=== PATIENT | female | born 1950 | race Caucasian/White ===

== ENCOUNTER 2020-02-28 08:19 | Outpatient (CLI) | payer MEDICARE, OTHER, SELFPAY ==
--- NOTE | 2020-02-28 08:35 | PC.NURSE ---
PT TO ROOM 201 AMB WITH SPOUSE. A&OX3. HAS NO COMPLAINTS. SPOUSE HAS LOTS OF QUESTIONS. BOTH PT AND SPOUSE APPEAR NERVOUS. TREATMENT AND PLAN OF CARE EXPLAINED. PT AND SPOUSE STATE THEY FEEL REASSURED. CHEMOTHERAPY CONSENT SIGNED. PT STATES SHE DOES NOT HAVE A PORT YET. LAB IN TO DRAW CBC AND CMP. ORIENTED TO ROOM. CALL GRAF IN REACH. REMINDED TO CALL WITH NEEDS.
[2020-02-28 08:50] LABS: Basophils Absolute Auto 0.02 K/mm3 (0.00-0.10); Basophils Percent Auto 0.5 % (0.0-1.0); Eosinophils Absolute Auto 0.09 K/mm3 (0.02-0.50); Eosinophils Percent Auto 2.2 % (1.0-6.0); Hematocrit 39.9 % (35.0-42.0); Hemoglobin 13.1 g/dL (11.7-13.8); Immature Granulocyte Absolute 0.01 K/mm3 (0.00-0.00); Immature Granulocyte Percent A 0.2 % (0.0-0.0); Lymphocytes Absolute Auto 1.05 K/mm3 (1.10-4.50); Lymphocytes Percent Auto 25.4 % (18.0-42.0); Mean Corpuscular HGB Conc 32.8 g/dL (32.0-36.0); Mean Corpuscular Hemoglobin 31.9 pg (27.0-31.0); Mean Corpuscular Volume 97.1 fL (78.0-102.0); Mean Platelet Volume 11.5 fl (9.2-11.8); Monocytes Absolute Auto 0.43 K/mm3 (0.10-0.90); Monocytes Percent Auto 10.4 % (2.0-11.0); Neutrophils Absolute Auto 2.5 K/mm3 (1.7-7.2); Neutrophils Percent Auto 61.3 % (50.0-70.0); Platelet Count Result 213 K/mm3 (150-420); Red Blood Count 4.11 M/mm3 (4.20-5.40); Red Cell Distribution Width 12.7 % (11.6-14.4); White Blood Count 4.1 K/mm3 (4.8-10.8)
[2020-02-28 09:00] LABS: Alanine Aminotransferase 22 U/L (14-59); Albumin Level 3.1 g/dL (3.4-5.0); Alkaline Phosphatase 43 U/L (46-116); Anion Gap 10.1 mmol/L (7-16); Aspartate Amino Transferase 20 U/L (15-37); Bilirubin,Total 0.8 mg/dL (0.00-1.00); Blood Urea Nitrogen 13 mg/dL (7-18); Calcium 8.8 mg/dL (8.5-10.1); Carbon Dioxide 30 mmol/L (21-32); Chloride 100 mmol/L (98-108); Estimated Glomerular Filt Rate > 60; Glucose 104 mg/dL (70-99); Osmolality Calculated 284 mOsm/kg (285-295); Potassium 3.1 mmol/L (3.5-5.1); Sodium 137 mmol/L (136-145)
[2020-02-28] MEDS: FAMOTIDINE 20 MG/ISO 50 ML 20 MG/50 ML BAG 100 MG IVPB (09:45)
[2020-02-28] MEDS: ACETAMINOPHEN 325 MG TABLET 650 MG PO (09:45)
[2020-02-28] MEDS: SODIUM CHLORIDE 0.9% IV 250 ML 10 ML IVPB (09:45)
[2020-02-28 09:51] VITALS: BP 121/66; PULSE 76; RESP 20; TEMP 37.1; O2SAT 96
--- NOTE | 2020-02-28 11:23 | PC.NURSE ---
RITUXIN INCREASED TO 100ML/HR PER PROTOCOL. PATIENT IS TOLERATING WELL. HAS NO COMPLAINTS. VSS. REMINDED TO CALL WITH NEEDS.
[2020-02-28 11:24] VITALS: BP 133/67; PULSE 71; RESP 20; TEMP 36.9; O2SAT 99
--- NOTE | 2020-02-28 12:19 | PC.NURSE ---
PT ATE LUNCH WITHOUT COMPLAINT. RITUXIN CONTINUES TO INFUSE WITHOUT DIFFICULTY. CURRENT RATE IS 200ML/HOUR. PT TOLERATING WELL. SPOUSE AT BEDSIDE. CALL GRAF IN REACH. REMINDED TO CALL WITH NEEDS.
[2020-02-28 12:54] VITALS: BP 109/55; PULSE 73; RESP 20; TEMP 36.6; O2SAT 97
[2020-02-28 13:51] VITALS: BP 104/52; PULSE 75; RESP 20; TEMP 37.4; O2SAT 96
--- NOTE | 2020-02-28 13:52 | PC.NURSE ---
PT RESTING PER BED WITHOUT COMPLAINTS. RITUXIN CONTINUES TO INFUSE. SPOUSE AT BEDSIDE. REMINDED TO CALL WITH NEEDS.
--- NOTE | 2020-02-28 15:20 | PC.NURSE ---
ALL MEDICATIONS INFUSED ORDERED. PT TOLERATED WELL. PT AND SPOUSE HAVE NO QUESTIONS, COMPLAINTS OR CONCERNS. DISCHARGED TO HOME AMB.
== END 2020-02-28 08:20 | disposition home or self-care (01) ==
PROVIDERS: PCP Family Medicine; Visit Provider Internal Medicine Hematology & Oncology
DX: Z51.11 Encounter for antineoplastic chemotherapy (principal); C83.00 Small cell B-cell lymphoma, unspecified site
CPT/HCPCS: 36415; 80053; 85025; 96365; 96367; 96368; 96374; 96375; 96413; 96415; A9270; J1100; J1200; J7030; J7050; J9312

== ENCOUNTER 2020-03-06 08:24 | Outpatient (CLI) | payer MEDICARE, OTHER, SELFPAY ==
[2020-03-06 08:38] LABS: Hematocrit 41.6 % (35.0-42.0); Hemoglobin 13.5 g/dL (11.7-13.8); Mean Corpuscular HGB Conc 32.5 g/dL (32.0-36.0); Mean Corpuscular Hemoglobin 32.3 pg (27.0-31.0); Mean Corpuscular Volume 99.5 fL (78.0-102.0); Mean Platelet Volume 12.2 fl (9.2-11.8); Platelet Count Result 141 K/mm3 (150-420); Red Blood Count 4.18 M/mm3 (4.20-5.40); Red Cell Distribution Width 12.7 % (11.6-14.4); White Blood Count 6.1 K/mm3 (4.8-10.8)
[2020-03-06 08:52] LABS: Alanine Aminotransferase 16 U/L (14-59); Albumin Level 3.2 g/dL (3.4-5.0); Alkaline Phosphatase 40 U/L (46-116); Anion Gap 10.5 mmol/L (7-16); Aspartate Amino Transferase 15 U/L (15-37); Bilirubin,Total 1.2 mg/dL (0.00-1.00); Blood Urea Nitrogen 12 mg/dL (7-18); Calcium 8.8 mg/dL (8.5-10.1); Carbon Dioxide 29 mmol/L (21-32); Chloride 103 mmol/L (98-108); Estimated Glomerular Filt Rate > 60; Glucose 91 mg/dL (70-99); Osmolality Calculated 285 mOsm/kg (285-295); Potassium 4.5 mmol/L (3.5-5.1); Sodium 138 mmol/L (136-145); Total Protein 9.6 g/dL (6.4-8.2)
[2020-03-06 09:22] LABS: Band Neutrophils Percent 1 % (0-6); Basophils Percent Manual 0 % (0-1); Eosinophils Absolute Manual 0.12 K/mm3 (0.02-0.5); Eosinophils Percent Manual 2 % (1-6); Lymphocytes Absolute Manual 1.52 K/mm3 (1.1-4.5); Lymphocytes Percent Manual 25 % (18-44); Metamyelocytes Percent 1 %; Monocytes Absolute Manual 0.48 K/mm3 (0.1-0.90); Monocytes Percent Manual 8 % (3-9); Neutrophils Percent Manual 63 % (46-73); Platelet Estimate Adequate (Adequate); Total Cells Counted 100
[2020-03-06] MEDS: SODIUM CHLORIDE 0.9% IV 250 ML 10 ML IVPB (09:31)
[2020-03-06] MEDS: ACETAMINOPHEN 325 MG TABLET 650 MG PO (09:34)
[2020-03-06] MEDS: FAMOTIDINE 20 MG/ISO 50 ML 20 MG/50 ML BAG 100 MG IVPB (09:42)
[2020-03-06 10:08] VITALS: BP 145/63; PULSE 76; RESP 16; TEMP 36.6; O2SAT 99
[2020-03-06 11:04] VITALS: BP 115/56; PULSE 72; RESP 14; TEMP 36.6; O2SAT 98
--- NOTE | 2020-03-06 11:05 | PC.NURSE ---
0900 PATIENT HERE FOR CHEMO RITUXIMAB INFUSION. ALSO TAKE PO IBRUTINIB AT HOME DAILY. LABS REVIEWED WITH PATIENT AND CHEMO DRUGS SIDE EFFECTS ETC WITH PATIENT. ALSO REVIEWED HOME MEDS WITH PATIENT. ALL CONCERNS ANSWERED THAT PATIENT AND HAD. PATIENT VERY NERVOUS TODAY. THIS IS #2 IV CHEMO. PATIENT DID TAKE AN ATIVAN PO PRIOR TO TREATMENT. 1030 RITUXIMAB STARTED NOW THAT ALL PREMEDS IN. PATIENT SOMEWHAT LESS ANXIOUS. REPORTS SHE GETS LIKE THIS AT TIMES.
[2020-03-06 11:32] VITALS: BP 109/60; PULSE 76; RESP 14; O2SAT 98
--- NOTE | 2020-03-06 11:33 | PC.NURSE ---
1130 REPORTS LESS ANXIOUS. RITUXIMAB INFUSING WITHOUT DIFFICULTY. AT BED SIDE. NO CONCERNS VOICED.
[2020-03-06 12:02] VITALS: BP 105/59; PULSE 74; RESP 14; O2SAT 98
[2020-03-06 13:00] VITALS: BP 105/59; PULSE 72; RESP 14; O2SAT 98
[2020-03-06 15:00] VITALS: BP 109/59; PULSE 74; RESP 14; TEMP 37.2; O2SAT 98
--- NOTE | 2020-03-06 15:40 | PC.NURSE ---
1530 PATIENT TOLERATED CHEMO WELL. LESS ANXIOUS IN THE BEGINNING THIS A.M. NO CONCERNS VOICED. CALLED TO DR. STOVER OFFICE TO SEE IF OKAY TO CHANGE NEXT FRIDAY TO FRIDAY R/T APPOINTMENTS WITH OTHER DOCTORS ON FRIDAY. SO NEXT CHEMO WILL BE Friday03/16/20 @ 0830. SAFE EXIT OF HOSPITAL.
== END 2020-03-06 08:25 | disposition home or self-care (01) ==
PROVIDERS: PCP Family Medicine; Visit Provider Internal Medicine Hematology & Oncology
DX: Z51.11 Encounter for antineoplastic chemotherapy (principal); C83.00 Small cell B-cell lymphoma, unspecified site
CPT/HCPCS: 36415; 80053; 85025; 96365; 96367; 96374; 96375; 96413; 96415; A9270; J1100; J1200; J7030; J7050; J9312

== ENCOUNTER 2020-03-14 08:19 | Outpatient (CLI) | payer MEDICARE, OTHER, SELFPAY ==
[2020-03-14 08:30] LABS: Hemoglobin 13.7 g/dL (11.7-13.8); Mean Corpuscular HGB Conc 32.6 g/dL (32.0-36.0); Mean Corpuscular Hemoglobin 32.5 pg (27.0-31.0); Mean Corpuscular Volume 99.8 fL (78.0-102.0); Mean Platelet Volume 12.5 fl (9.2-11.8); Platelet Count Result 152 K/mm3 (150-420); Red Blood Count 4.21 M/mm3 (4.20-5.40); Red Cell Distribution Width 12.9 % (11.6-14.4); White Blood Count 5.8 K/mm3 (4.8-10.8)
[2020-03-14 08:45] LABS: Alanine Aminotransferase 19 U/L (14-59); Albumin Level 3.2 g/dL (3.4-5.0); Alkaline Phosphatase 35 U/L (46-116); Anion Gap 9.4 mmol/L (7-16); Aspartate Amino Transferase 18 U/L (15-37); Bilirubin,Total 1.6 mg/dL (0.00-1.00); Blood Urea Nitrogen 19 mg/dL (7-18); Calcium 9.1 mg/dL (8.5-10.1); Carbon Dioxide 29 mmol/L (21-32); Chloride 102 mmol/L (98-108); Estimated Glomerular Filt Rate > 60; Glucose 88 mg/dL (70-99); Osmolality Calculated 283 mOsm/kg (285-295); Potassium 4.4 mmol/L (3.5-5.1); Sodium 136 mmol/L (136-145); Total Protein 9.2 g/dL (6.4-8.2)
[2020-03-14 08:51] VITALS: BP 127/70; PULSE 72; RESP 16; TEMP 36.6; O2SAT 96
[2020-03-14 08:53] LABS: Band Neutrophils Percent 0 % (0-6); Basophils Absolute Manual 0.05 K/mm3 (0-0.1); Basophils Percent Manual 1 % (0-1); Eosinophils Absolute Manual 0.17 K/mm3 (0.02-0.5); Eosinophils Percent Manual 3 % (1-6); Lymphocytes Absolute Manual 1.16 K/mm3 (1.1-4.5); Lymphocytes Percent Manual 20 % (18-44); Monocytes Absolute Manual 0.29 K/mm3 (0.1-0.90); Monocytes Percent Manual 5 % (3-9); Neutrophils Absolute Manual 4.11 K/mm3 (1.7-7.2); Neutrophils Percent Manual 71 % (46-73); Platelet Estimate Adequate (Adequate); Total Cells Counted 100
[2020-03-14] MEDS: SODIUM CHLORIDE 0.9% IV 250 ML 10 ML IVPB (09:19)
[2020-03-14] MEDS: ACETAMINOPHEN 325 MG TABLET 650 MG PO (09:19)
[2020-03-14] MEDS: diphenhydrAMINE HCl INJ 50 MG/ML VIAL 25 MG IV PUSH (09:19)
[2020-03-14] MEDS: FAMOTIDINE 20 MG/ISO 50 ML 20 MG/50 ML BAG 100 MG IVPB (09:20)
[2020-03-14 11:00] VITALS: BP 113/69; PULSE 68; RESP 12; TEMP 36.6; O2SAT 96
[2020-03-14 11:30] VITALS: BP 109/64; PULSE 68; RESP 14; O2SAT 96
[2020-03-14 12:00] VITALS: BP 106/60; PULSE 72; RESP 16; O2SAT 97
[2020-03-14 14:45] VITALS: BP 109/62; PULSE 64; RESP 14; TEMP 36.8; O2SAT 96
--- NOTE | 2020-03-14 15:11 | PC.NURSE ---
0866 Patient here for treatment 3 of cycle 1 rituximab + Ibrutinib. No concerns voiced. Went over current medications and any side effects could be happening with chemo. Patient happy she tolerating it well so far. Labs reviewed. Ok to proceed with chemo. Chemo therapy regimen administered tolerated it well. 1500 Safe exit of hospital. Will return next Friday for treatment 4 of cycle 1.
== END 2020-03-14 08:20 | disposition home or self-care (01) ==
PROVIDERS: PCP Family Medicine; Visit Provider Internal Medicine Hematology & Oncology
DX: Z51.11 Encounter for antineoplastic chemotherapy (principal); C83.00 Small cell B-cell lymphoma, unspecified site
CPT/HCPCS: 36415; 80053; 85025; 96367; 96375; 96413; 96415; A9270; J1100; J1200; J7030; J7050; J9312

== ENCOUNTER 2020-03-20 07:56 | Outpatient (CLI) | payer MEDICARE, OTHER, SELFPAY ==
[2020-03-20 08:15] LABS: Hematocrit 43.5 % (35.0-42.0); Hemoglobin 13.6 g/dL (11.7-13.8); Mean Corpuscular HGB Conc 31.3 g/dL (32.0-36.0); Mean Corpuscular Hemoglobin 31.5 pg (27.0-31.0); Mean Corpuscular Volume 100.7 fL (78.0-102.0); Mean Platelet Volume 13.1 fl (9.2-11.8); Platelet Count Result 151 K/mm3 (150-420); Red Blood Count 4.32 M/mm3 (4.20-5.40); Red Cell Distribution Width 12.4 % (11.6-14.4); White Blood Count 6.4 K/mm3 (4.8-10.8)
[2020-03-20 08:26] LABS: Blood Urea Nitrogen 13 mg/dL (7-18); Calcium 8.6 mg/dL (8.5-10.1); Estimated Glomerular Filt Rate > 60; Glucose 91 mg/dL (70-99)
[2020-03-20 08:35] LABS: Band Neutrophils Percent 0 % (0-6); Eosinophils Absolute Manual 0.06 K/mm3 (0.02-0.5); Eosinophils Percent Manual 1 % (1-6); Lymphocytes Absolute Manual 1.08 K/mm3 (1.1-4.5); Lymphocytes Percent Manual 17 % (18-44); Monocytes Absolute Manual 0.57 K/mm3 (0.1-0.90); Monocytes Percent Manual 9 % (3-9); Neutrophils Absolute Manual 4.67 K/mm3 (1.7-7.2); Neutrophils Percent Manual 73 % (46-73); Platelet Estimate Adequate (Adequate); Total Cells Counted 100
[2020-03-20 09:10] VITALS: BP 127/83; PULSE 68; RESP 14; TEMP 36.6; O2SAT 96
[2020-03-20] MEDS: ACETAMINOPHEN 325 MG TABLET 650 MG PO (09:28)
[2020-03-20] MEDS: FAMOTIDINE 20 MG/ISO 50 ML 20 MG/50 ML BAG 100 MG IVPB (09:29)
[2020-03-20] MEDS: diphenhydrAMINE HCl INJ 50 MG/ML VIAL 25 MG IV PUSH (09:29)
[2020-03-20] MEDS: SODIUM CHLORIDE 0.9% IV 250 ML 10 ML IVPB (09:29)
[2020-03-20 10:42] LABS: Chloride 105 mmol/L (98-107); Osmolality Calculated 284 mOsm/kg (285-295); Potassium 4.1 mmol/L (3.4-5.0); Sodium 137 mmol/L (137-145)
[2020-03-20 11:12] VITALS: BP 127/61; PULSE 68; RESP 12; O2SAT 98
[2020-03-20 11:12] LABS: Alanine Aminotransferase 18 U/L (14-59); Albumin Level 3.1 g/dL (3.4-5.0); Alkaline Phosphatase 40 U/L (46-116); Anion Gap 9.1 mmol/L (7-16); Aspartate Amino Transferase 15 U/L (15-37); Bilirubin,Total 1.1 mg/dL (0.00-1.00); Carbon Dioxide 27 mmol/L (21-32); Total Protein 8.6 g/dL (6.4-8.2)
[2020-03-20 11:36] VITALS: BP 114/70; PULSE 72; RESP 18; O2SAT 98
[2020-03-20 12:12] VITALS: BP 129/70; PULSE 72; RESP 14; O2SAT 97
[2020-03-20 14:08] VITALS: BP 120/70; PULSE 72; RESP 14; O2SAT 98
[2020-03-20 15:08] VITALS: BP 130/70; PULSE 68; RESP 12; TEMP 36.6; O2SAT 97
--- NOTE | 2020-03-20 15:13 | PC.NURSE ---
PATIENT HERE FOR 4 AND FINAL CHEMO OF CYCLE 1 RITUXIN. NO CONCERNS VOICED. LABS REVIEWED WITH PATIENT. CHEMO ADMINISTERED. TOLERATED WELL. SAFE EXIT OF HOSPITAL WITH . PATIENT HAS APPOINTMENT WITH DR. STOVER THIS FridayMARCH 24 AT 1300.
== END 2020-03-20 07:57 | disposition home or self-care (01) ==
LOC: CHSTREATRM 07:58
PROVIDERS: PCP Family Medicine; Visit Provider Internal Medicine Hematology & Oncology
DX: Z51.11 Encounter for antineoplastic chemotherapy (principal); C83.00 Small cell B-cell lymphoma, unspecified site
CPT/HCPCS: 36415; 80053; 85025; 96367; 96375; 96413; 96415; A9270; J1100; J1200; J7030; J7050; J9312

== ENCOUNTER 2020-05-29 07:48 | Outpatient (CLI) | payer MEDICARE, OTHER, SELFPAY ==
[2020-05-29 07:59] LABS: Hematocrit 41.4 % (35.0-42.0); Hemoglobin 12.9 g/dL (11.7-13.8); Mean Corpuscular HGB Conc 31.2 g/dL (32.0-36.0); Mean Corpuscular Hemoglobin 29.5 pg (27.0-31.0); Mean Corpuscular Volume 94.5 fL (78.0-102.0); Mean Platelet Volume 11.9 fl (9.2-11.8); Platelet Count Result 173 K/mm3 (150-420); Red Blood Count 4.38 M/mm3 (4.20-5.40); Red Cell Distribution Width 12.8 % (11.6-14.4); White Blood Count 9.9 K/mm3 (4.8-10.8)
[2020-05-29 08:14] LABS: Alanine Aminotransferase 20 U/L (14-59); Albumin Level 2.9 g/dL (3.4-5.0); Alkaline Phosphatase 58 U/L (46-116); Anion Gap 7 mmol/L (8-16); Aspartate Amino Transferase 16 U/L (15-37); Bilirubin,Total 0.8 mg/dL (0.00-1.00); Blood Urea Nitrogen 18 mg/dL (7-18); Calcium 8.4 mg/dL (8.5-10.1); Carbon Dioxide 28 mmol/L (21-32); Chloride 108 mmol/L (98-108); Estimated Glomerular Filt Rate > 60; Glucose 92 mg/dL (70-99); Osmolality Calculated 297 mOsm/kg (285-295); Sodium 143 mmol/L (136-145); Total Protein 7.6 g/dL (6.4-8.2)
[2020-05-29 08:19] VITALS: BP 155/78; PULSE 72; RESP 16; TEMP 36.6; O2SAT 97
[2020-05-29 08:34] LABS: Total Cells Counted 100
[2020-05-29 08:35] LABS: Band Neutrophils Percent 0 % (0-6); Basophils Percent Manual 0 % (0-1); Eosinophils Absolute Manual 0.09 K/mm3 (0.02-0.5); Eosinophils Percent Manual 1 % (1-6); Lymphocytes Absolute Manual 2.17 K/mm3 (1.1-4.5); Lymphocytes Percent Manual 22 % (18-44); Metamyelocytes Percent 0 %; Monocytes Absolute Manual 0.49 K/mm3 (0.1-0.90); Monocytes Percent Manual 5 % (3-9); Neutrophils Absolute Manual 7.12 K/mm3 (1.7-7.2); Neutrophils Percent Manual 72 % (46-73); Platelet Estimate Adequate (Adequate)
[2020-05-29] MEDS: diphenhydrAMINE HCl INJ 50 MG/ML VIAL 25 MG IV PUSH (08:53)
[2020-05-29] MEDS: ACETAMINOPHEN 325 MG TABLET 650 MG PO (08:53)
[2020-05-29] MEDS: FAMOTIDINE 20 MG/ISO 50 ML 20 MG/50 ML BAG 100 MG IVPB (08:53)
[2020-05-29] MEDS: SODIUM CHLORIDE 0.9% IV 250 ML 10 ML IVPB (08:53)
[2020-05-29 10:39] VITALS: BP 114/67; PULSE 68; RESP 14; O2SAT 97
[2020-05-29 11:09] VITALS: BP 123/69; PULSE 68; RESP 14; O2SAT 97
[2020-05-29 11:30] VITALS: BP 123/65; PULSE 68; RESP 14; O2SAT 98
[2020-05-29 14:32] VITALS: BP 113/69; PULSE 68; RESP 14; TEMP 36.6; O2SAT 97
--- NOTE | 2020-05-29 14:37 | PC.NURSE ---
0800 Patient here for day 1 of Rituximab chemo treatment. Patient had this back in April. Refresher on education on chemo given. with her. Labs reviewed. Chemo administered. Tolerated well. Will return for day 8 next Friday. Safe exit of hospital.
== END 2020-05-29 07:49 | disposition home or self-care (01) ==
PROVIDERS: PCP Family Medicine; Visit Provider Internal Medicine Hematology & Oncology
DX: Z51.11 Encounter for antineoplastic chemotherapy (principal); C83.00 Small cell B-cell lymphoma, unspecified site
CPT/HCPCS: 36415; 80053; 85025; 96367; 96375; 96413; 96415; A9270; J1100; J1200; J7030; J7050; J9312

== ENCOUNTER 2020-06-05 07:54 | Outpatient (CLI) | payer MEDICARE, OTHER, SELFPAY ==
[2020-06-05 08:04] LABS: Basophils Absolute Auto 0.02 K/mm3 (0.00-0.10); Basophils Percent Auto 0.2 % (0.0-1.0); Eosinophils Absolute Auto 0.16 K/mm3 (0.02-0.50); Eosinophils Percent Auto 1.7 % (1.0-6.0); Hematocrit 39.9 % (35.0-42.0); Hemoglobin 12.5 g/dL (11.7-13.8); Immature Granulocyte Absolute 0.08 K/mm3 (0.00-0.00); Immature Granulocyte Percent A 0.9 % (0.0-0.0); Lymphocytes Absolute Auto 1.66 K/mm3 (1.10-4.50); Lymphocytes Percent Auto 17.7 % (18.0-42.0); Mean Corpuscular HGB Conc 31.3 g/dL (32.0-36.0); Mean Corpuscular Hemoglobin 29.6 pg (27.0-31.0); Mean Corpuscular Volume 94.3 fL (78.0-102.0); Mean Platelet Volume 11.8 fl (9.2-11.8); Monocytes Absolute Auto 0.73 K/mm3 (0.10-0.90); Monocytes Percent Auto 7.8 % (2.0-11.0); Neutrophils Absolute Auto 6.7 K/mm3 (1.7-7.2); Neutrophils Percent Auto 71.7 % (50.0-70.0); Platelet Count Result 168 K/mm3 (150-420); Red Blood Count 4.23 M/mm3 (4.20-5.40); Red Cell Distribution Width 13.2 % (11.6-14.4); White Blood Count 9.4 K/mm3 (4.8-10.8)
[2020-06-05 08:22] VITALS: BP 143/80; PULSE 78; RESP 14; TEMP 36; O2SAT 97
[2020-06-05 08:44] LABS: Alanine Aminotransferase 16 U/L (14-59); Albumin Level 2.7 g/dL (3.4-5.0); Alkaline Phosphatase 52 U/L (46-116); Anion Gap 6 mmol/L (8-16); Aspartate Amino Transferase 31 U/L (15-37); Bilirubin,Total 0.7 mg/dL (0.00-1.00); Blood Urea Nitrogen 16 mg/dL (7-18); Calcium 8.4 mg/dL (8.5-10.1); Carbon Dioxide 32 mmol/L (21-32); Chloride 106 mmol/L (98-108); Estimated Glomerular Filt Rate > 60; Glucose 89 mg/dL (70-99); Osmolality Calculated 298 mOsm/kg (285-295); Potassium 4.3 mmol/L (3.5-5.1); Sodium 144 mmol/L (136-145); Total Protein 7.5 g/dL (6.4-8.2)
[2020-06-05] MEDS: diphenhydrAMINE HCl INJ 50 MG/ML VIAL 25 MG IV PUSH (09:03)
[2020-06-05] MEDS: ACETAMINOPHEN 325 MG TABLET 650 MG PO (09:03)
[2020-06-05] MEDS: SODIUM CHLORIDE 0.9% IV 250 ML 10 ML IVPB (09:03)
[2020-06-05] MEDS: FAMOTIDINE 20 MG/ISO 50 ML 20 MG/50 ML BAG 100 MG IVPB (09:03)
[2020-06-05 10:26] VITALS: BP 116/69; PULSE 68; RESP 14; TEMP 36.6; O2SAT 97
[2020-06-05 11:30] VITALS: BP 128/70; PULSE 68; RESP 16; O2SAT 97
[2020-06-05 14:23] VITALS: BP 123/70; PULSE 72; RESP 14; TEMP 36.6; O2SAT 97
--- NOTE | 2020-06-05 14:28 | PC.NURSE ---
Patient here for day 8 of cycle 1 Rituximab chemo. No concerns voiced. with her. Labs reviewed and ok'd. Rituximab regimen administered see OCT. Tolerated very well. Will return next Friday for day 15. Safe exit of hospital.
== END 2020-06-05 07:55 | disposition home or self-care (01) ==
LOC: CHSTREATRM 07:57
PROVIDERS: PCP Family Medicine; Visit Provider Internal Medicine Hematology & Oncology
DX: Z51.11 Encounter for antineoplastic chemotherapy (principal); C83.00 Small cell B-cell lymphoma, unspecified site
CPT/HCPCS: 36415; 80053; 85025; 96367; 96375; 96413; 96415; A9270; J1100; J1200; J7030; J7050; J9312

== ENCOUNTER 2020-06-12 07:34 | Outpatient (CLI) | payer MEDICARE, OTHER, SELFPAY ==
[2020-06-12 07:46] LABS: Hematocrit 39.8 % (35.0-42.0); Hemoglobin 12.4 g/dL (11.7-13.8); Mean Corpuscular HGB Conc 31.2 g/dL (32.0-36.0); Mean Corpuscular Hemoglobin 29.3 pg (27.0-31.0); Mean Corpuscular Volume 94.1 fL (78.0-102.0); Mean Platelet Volume 12.3 fl (9.2-11.8); Platelet Count Result 181 K/mm3 (150-420); Red Blood Count 4.23 M/mm3 (4.20-5.40); Red Cell Distribution Width 13.2 % (11.6-14.4); White Blood Count 12.8 K/mm3 (4.8-10.8)
[2020-06-12 08:01] LABS: Albumin Level 2.9 g/dL (3.4-5.0); Alkaline Phosphatase 54 U/L (46-116); Anion Gap 10 mmol/L (8-16); Carbon Dioxide 24 mmol/L (21-32); Chloride 107 mmol/L (98-108); Estimated Glomerular Filt Rate > 60; Potassium 4.2 mmol/L (3.5-5.1); Sodium 141 mmol/L (136-145)
[2020-06-12 08:06] LABS: Band Neutrophils Percent 0 % (0-6); Eosinophils Percent Manual 0 % (1-6); Lymphocytes Absolute Manual 1.15 K/mm3 (1.1-4.5); Lymphocytes Percent Manual 9 % (18-44); Monocytes Absolute Manual 0.64 K/mm3 (0.1-0.90); Monocytes Percent Manual 5 % (3-9); Neutrophils Percent Manual 86 % (46-73); Platelet Estimate Adequate (Adequate); Total Cells Counted 100
[2020-06-12 08:07] VITALS: BP 136/64; PULSE 80; RESP 14; TEMP 35.9; O2SAT 97
[2020-06-12 08:16] LABS: Alanine Aminotransferase 17 U/L (14-59); Aspartate Amino Transferase 17 U/L (15-37); Bilirubin,Total 0.7 mg/dL (0.00-1.00); Blood Urea Nitrogen 19 mg/dL (7-18); Calcium 8.3 mg/dL (8.5-10.1); Glucose 105 mg/dL (70-99); Osmolality Calculated 294 mOsm/kg (285-295); Total Protein 7.3 g/dL (6.4-8.2)
[2020-06-12] MEDS: SODIUM CHLORIDE 0.9% IV 250 ML 10 ML IVPB (08:51)
[2020-06-12] MEDS: diphenhydrAMINE HCl INJ 50 MG/ML VIAL 25 MG IV PUSH (08:51)
[2020-06-12] MEDS: ACETAMINOPHEN 325 MG TABLET 650 MG PO (08:51)
[2020-06-12] MEDS: FAMOTIDINE 20 MG/ISO 50 ML 20 MG/50 ML BAG 100 MG IVPB (08:52)
[2020-06-12 10:00] VITALS: BP 120/68; PULSE 77; RESP 14; O2SAT 97
[2020-06-12 10:30] VITALS: BP 116/68; PULSE 74; RESP 14; O2SAT 97
[2020-06-12 12:56] VITALS: BP 120/69; PULSE 74; RESP 14; TEMP 36.3; O2SAT 97
[2020-06-12 14:08] VITALS: BP 114/68; PULSE 74; RESP 14; TEMP 36.3; O2SAT 97
--- NOTE | 2020-06-12 14:12 | PC.NURSE ---
Patient here for day 15 of cycle 1 Rituximab 28 day cycle. No concerns voiced. Reports did well this past week. Labs reviewed and ok'd. Rituximab regime administered. SEE MAR. Tolerated chemo well. Will return for next Tuesday 06/19 at 0800. Safe exit of hospital.
== END 2020-06-12 07:35 | disposition home or self-care (01) ==
LOC: CHSTREATRM 07:36
PROVIDERS: PCP Family Medicine; Visit Provider Internal Medicine Hematology & Oncology
DX: Z51.11 Encounter for antineoplastic chemotherapy (principal); C83.00 Small cell B-cell lymphoma, unspecified site
CPT/HCPCS: 36415; 80053; 85025; 96367; 96375; 96413; 96415; A9270; J1100; J1200; J7030; J7050; J9312

== ENCOUNTER 2020-06-19 07:38 | Outpatient (CLI) | payer MEDICARE, OTHER, SELFPAY ==
[2020-06-19 07:48] LABS: Basophils Absolute Auto 0.04 K/mm3 (0.00-0.10); Basophils Percent Auto 0.4 % (0.0-1.0); Eosinophils Absolute Auto 0.08 K/mm3 (0.02-0.50); Eosinophils Percent Auto 0.9 % (1.0-6.0); Hematocrit 41.5 % (35.0-42.0); Hemoglobin 12.8 g/dL (11.7-13.8); Immature Granulocyte Absolute 0.14 K/mm3 (0.00-0.00); Immature Granulocyte Percent A 1.5 % (0.0-0.0); Lymphocytes Percent Auto 12.9 % (18.0-42.0); Mean Corpuscular HGB Conc 30.8 g/dL (32.0-36.0); Mean Corpuscular Hemoglobin 29.2 pg (27.0-31.0); Mean Corpuscular Volume 94.5 fL (78.0-102.0); Mean Platelet Volume 11.9 fl (9.2-11.8); Monocytes Absolute Auto 0.71 K/mm3 (0.10-0.90); Monocytes Percent Auto 7.6 % (2.0-11.0); Neutrophils Absolute Auto 7.1 K/mm3 (1.7-7.2); Neutrophils Percent Auto 76.7 % (50.0-70.0); Platelet Count Result 212 K/mm3 (150-420); Red Blood Count 4.39 M/mm3 (4.20-5.40); Red Cell Distribution Width 13.7 % (11.6-14.4); White Blood Count 9.3 K/mm3 (4.8-10.8)
[2020-06-19 08:04] LABS: Alanine Aminotransferase 16 U/L (14-59); Albumin Level 3.1 g/dL (3.4-5.0); Alkaline Phosphatase 55 U/L (46-116); Anion Gap 5 mmol/L (8-16); Aspartate Amino Transferase 19 U/L (15-37); Bilirubin,Total 0.9 mg/dL (0.00-1.00); Blood Urea Nitrogen 18 mg/dL (7-18); Calcium 8.5 mg/dL (8.5-10.1); Carbon Dioxide 28 mmol/L (21-32); Chloride 107 mmol/L (98-108); Estimated Glomerular Filt Rate > 60; Glucose 87 mg/dL (70-99); Osmolality Calculated 290 mOsm/kg (285-295); Potassium 4.2 mmol/L (3.5-5.1); Sodium 140 mmol/L (136-145); Total Protein 7.3 g/dL (6.4-8.2)
[2020-06-19 08:13] VITALS: BP 114/59; PULSE 84; RESP 14; TEMP 36.3; O2SAT 97
[2020-06-19] MEDS: SODIUM CHLORIDE 0.9% IV 250 ML 10 ML IVPB (08:28)
[2020-06-19] MEDS: FAMOTIDINE 20 MG/ISO 50 ML 20 MG/50 ML BAG 100 MG IVPB (08:29)
[2020-06-19] MEDS: diphenhydrAMINE HCl INJ 50 MG/ML VIAL 25 MG IV PUSH (08:29)
[2020-06-19] MEDS: ACETAMINOPHEN 325 MG TABLET 650 MG PO (08:30)
[2020-06-19 10:00] VITALS: BP 114/69; PULSE 74; RESP 14; O2SAT 98
[2020-06-19 10:30] VITALS: BP 121/68; PULSE 78; RESP 16; O2SAT 98
[2020-06-19 11:00] VITALS: BP 108/64; PULSE 78; RESP 14; O2SAT 98
[2020-06-19 14:14] VITALS: BP 110/64; PULSE 74; RESP 14; TEMP 36.4; O2SAT 98
--- NOTE | 2020-06-19 14:19 | PC.NURSE ---
Patient here for day 22 of Rituxan IV chemo regimen. NO concerns voiced. Labs drawn and reviewed and ok'd. Rituxan chemo regimen administered. See OCT. Tolerated it well. Will see Dr. Vides in clinic on Friday and go from there. Safe exit of hospital.
== END 2020-06-19 07:39 | disposition home or self-care (01) ==
LOC: CHSTREATRM 07:40
PROVIDERS: PCP Family Medicine; Visit Provider Internal Medicine Hematology & Oncology
DX: Z51.11 Encounter for antineoplastic chemotherapy (principal); C83.00 Small cell B-cell lymphoma, unspecified site
CPT/HCPCS: 36415; 80053; 85025; 96367; 96375; 96413; 96415; A9270; J1100; J1200; J7030; J7050; J9312

== ENCOUNTER 2021-02-06 07:01 | Outpatient (CLI) | payer MEDICARE, OTHER, SELFPAY ==
[2021-02-06 07:29] VITALS: BMI 30.7
[2021-02-06 07:29] LABS: Basophils Absolute Auto 0.02 K/mm3 (0.00-0.10); Basophils Percent Auto 0.4 % (0.0-1.0); Eosinophils Absolute Auto 0.19 K/mm3 (0.02-0.50); Eosinophils Percent Auto 3.4 % (1.0-6.0); Hematocrit 40.4 % (35.0-42.0); Hemoglobin 12.8 g/dL (11.7-13.8); Immature Granulocyte Absolute 0.02 K/mm3 (0.00-0.00); Immature Granulocyte Percent A 0.4 % (0.0-0.0); Lymphocytes Absolute Auto 1.53 K/mm3 (1.10-4.50); Lymphocytes Percent Auto 27.7 % (18.0-42.0); Mean Corpuscular HGB Conc 31.7 g/dL (32.0-36.0); Mean Corpuscular Hemoglobin 29.1 pg (27.0-31.0); Mean Corpuscular Volume 91.8 fL (78.0-102.0); Mean Platelet Volume 10.9 fl (9.2-11.8); Monocytes Absolute Auto 0.59 K/mm3 (0.10-0.90); Monocytes Percent Auto 10.7 % (2.0-11.0); Neutrophils Absolute Auto 3.2 K/mm3 (1.7-7.2); Neutrophils Percent Auto 57.4 % (50.0-70.0); Platelet Count Result 242 K/mm3 (150-420); Red Cell Distribution Width 13.2 % (11.6-14.4); White Blood Count 5.5 K/mm3 (4.8-10.8)
[2021-02-06 07:36] VITALS: BP 127/72; PULSE 72; RESP 14; TEMP 36.8; O2SAT 97
[2021-02-06] MEDS: FAMOTIDINE 20 MG/ISO 50 ML 20 MG/50 ML BAG 100 MG IVPB (07:50)
[2021-02-06 07:54] LABS: Alanine Aminotransferase 23 U/L (14-59); Albumin Level 3.3 g/dL (3.4-5.0); Alkaline Phosphatase 45 U/L (46-116); Anion Gap 8 mmol/L (8-16); Aspartate Amino Transferase 19 U/L (15-37); Bilirubin,Total 0.9 mg/dL (0.00-1.00); Blood Urea Nitrogen 16 mg/dL (7-18); Calcium 8.9 mg/dL (8.5-10.1); Carbon Dioxide 30 mmol/L (21-32); Chloride 104 mmol/L (98-108); Estimated CRCL calculation 51 ml/min; Estimated Glomerular Filt Rate > 60; Glucose 87 mg/dL (70-99); Osmolality Calculated 294 mOsm/kg (285-295); Potassium 3.9 mmol/L (3.5-5.1); Sodium 142 mmol/L (136-145); Total Protein 7.3 g/dL (6.4-8.2)
[2021-02-06] MEDS: diphenhydrAMINE HCl INJ 50 MG/ML VIAL 25 MG IV PUSH (07:58)
[2021-02-06] MEDS: ACETAMINOPHEN 325 MG TABLET 650 MG PO (07:58)
[2021-02-06 09:10] VITALS: BP 132/74; PULSE 68; RESP 14; O2SAT 97
[2021-02-06 09:41] VITALS: BP 130/62; PULSE 72; RESP 14; O2SAT 98
[2021-02-06 10:13] VITALS: BP 125/70; PULSE 72; RESP 14; TEMP 36.9; O2SAT 98
[2021-02-06 12:23] VITALS: BP 140/68; PULSE 72; RESP 14; O2SAT 98
--- NOTE | 2021-02-06 12:24 | PC.NURSE ---
Patient here for Rituxan IV chemo #1 of 6. Patient was here last year at this time for Rituxan. Went over education on chemo etc. No concerns voiced. Labs drawn today reviewed and ok'd. IV chemo regime administered. Tolerated well. Safe exit of hospital. Will return February 13, 2021 @ 0800 for #2.
[2021-02-08 19:26] LABS: Hepatitis A Antibody IgM Nonreactive; Hepatitis B Core Antibody Nonreactive (Nonreactive); Hepatitis B Surface Antigen Nonreactive (Nonreactive); Hepatitis C Virus Antibody Nonreactive (Nonreactive)
== END 2021-02-06 07:02 | disposition home or self-care (01) ==
LOC: CHSTREATRM 07:06
PROVIDERS: PCP Family Medicine; Visit Provider Internal Medicine Hematology & Oncology
DX: Z51.11 Encounter for antineoplastic chemotherapy (principal); C88.0 Waldenstrom macroglobulinemia; Z01.89 Encounter for other specified special examinations
CPT/HCPCS: 36415; 80053; 80074; 85025; 96367; 96375; 96413; 96415; A9270; J1100; J1200; J7030; J9312

== ENCOUNTER 2021-02-13 07:14 | Outpatient (CLI) | payer MEDICARE, OTHER, SELFPAY ==
[2021-02-13 07:32] LABS: Hemoglobin 13.3 g/dL (11.7-13.8); Mean Corpuscular HGB Conc 32.4 g/dL (32.0-36.0); Mean Corpuscular Hemoglobin 29.6 pg (27.0-31.0); Mean Corpuscular Volume 91.3 fL (78.0-102.0); Mean Platelet Volume 11.9 fl (9.2-11.8); Platelet Count Result 180 K/mm3 (150-420); Red Blood Count 4.49 M/mm3 (4.20-5.40); Red Cell Distribution Width 13.2 % (11.6-14.4); White Blood Count 6.9 K/mm3 (4.8-10.8)
[2021-02-13 07:41] VITALS: BP 122/43; PULSE 76; RESP 14; TEMP 37.1; O2SAT 98
[2021-02-13 07:44] LABS: Alanine Aminotransferase 21 U/L (14-59); Albumin Level 3.4 g/dL (3.4-5.0); Alkaline Phosphatase 46 U/L (46-116); Anion Gap 7 mmol/L (8-16); Aspartate Amino Transferase 15 U/L (15-37); Bilirubin,Total 1.2 mg/dL (0.00-1.00); Blood Urea Nitrogen 16 mg/dL (7-18); Calcium 8.9 mg/dL (8.5-10.1); Carbon Dioxide 29 mmol/L (21-32); Chloride 105 mmol/L (98-108); Estimated Glomerular Filt Rate > 60; Glucose 86 mg/dL (70-99); Osmolality Calculated 292 mOsm/kg (285-295); Sodium 141 mmol/L (136-145); Total Protein 7.4 g/dL (6.4-8.2)
[2021-02-13 07:55] LABS: Band Neutrophils Percent 0 % (0-6); Eosinophils Absolute Manual 0.06 K/mm3 (0.02-0.5); Eosinophils Percent Manual 1 % (1-6); Lymphocytes Percent Manual 29 % (18-44); Monocytes Absolute Manual 0.69 K/mm3 (0.1-0.90); Monocytes Percent Manual 10 % (3-9); Neutrophils Absolute Manual 4.14 K/mm3 (1.7-7.2); Neutrophils Percent Manual 60 % (46-73); Total Cells Counted 100
[2021-02-13 07:56] LABS: Basophils Percent Manual 0 % (0-1); Platelet Estimate Adequate (Adequate)
[2021-02-13] MEDS: FAMOTIDINE 20 MG/ISO 50 ML 20 MG/50 ML BAG 100 MG IVPB (08:00)
[2021-02-13] MEDS: SODIUM CHLORIDE 0.9% IV 250 ML 30 ML IVPB (08:00)
[2021-02-13] MEDS: ACETAMINOPHEN 325 MG TABLET 650 MG PO (08:14)
[2021-02-13] MEDS: diphenhydrAMINE HCl INJ 50 MG/ML VIAL 25 MG IV PUSH (08:29)
[2021-02-13 09:31] VITALS: BP 126/57; PULSE 80; RESP 14; TEMP 36.7; O2SAT 98
[2021-02-13 10:01] VITALS: BP 123/55; PULSE 70; RESP 14; TEMP 36.7; O2SAT 99
[2021-02-13 10:31] VITALS: BP 125/55; PULSE 68; RESP 14; TEMP 36.6; O2SAT 99
[2021-02-13 10:56] VITALS: BP 125/55; PULSE 68; RESP 14; O2SAT 99
[2021-02-13 11:43] VITALS: BMI 30.7
[2021-02-13 12:55] VITALS: BP 118/53; PULSE 68; RESP 14; O2SAT 97
--- NOTE | 2021-02-13 12:56 | PC.NURSE ---
Patient here for #2 of 4 Chemo Rituxan regimen. Labs drawn and reviewed. Ok'd. Teaching of meds reinforced. No concerns voiced. Chemo regime administered. Tolerated well. Safe exit of hospital. Will return next Saturday February 20, 2021 for #3.
== END 2021-02-13 07:15 | disposition home or self-care (01) ==
LOC: CHSTREATRM 07:18
PROVIDERS: PCP Family Medicine; Visit Provider Internal Medicine Hematology & Oncology
DX: Z51.11 Encounter for antineoplastic chemotherapy (principal); C88.0 Waldenstrom macroglobulinemia
CPT/HCPCS: 36415; 80053; 85025; 96367; 96375; 96413; 96415; A9270; J1100; J1200; J7030; J7050; J9312

== ENCOUNTER 2021-02-20 07:18 | Outpatient (CLI) | payer MEDICARE, OTHER, SELFPAY ==
[2021-02-20 07:30] VITALS: BMI 30.6
[2021-02-20 07:33] LABS: Hematocrit 40.8 % (35.0-42.0); Hemoglobin 13.1 g/dL (11.7-13.8); Mean Corpuscular HGB Conc 32.1 g/dL (32.0-36.0); Mean Corpuscular Hemoglobin 29.2 pg (27.0-31.0); Mean Corpuscular Volume 91.1 fL (78.0-102.0); Mean Platelet Volume 12.6 fl (9.2-11.8); Platelet Count Result 154 K/mm3 (150-420); Red Blood Count 4.48 M/mm3 (4.20-5.40); Red Cell Distribution Width 13.1 % (11.6-14.4); White Blood Count 7.8 K/mm3 (4.8-10.8)
[2021-02-20 07:40] VITALS: BP 146/71; PULSE 70; RESP 14; TEMP 36.6; O2SAT 99
[2021-02-20 07:46] LABS: Alanine Aminotransferase 19 U/L (14-59); Albumin Level 3.2 g/dL (3.4-5.0); Alkaline Phosphatase 44 U/L (46-116); Anion Gap 7 mmol/L (8-16); Aspartate Amino Transferase 14 U/L (15-37); Blood Urea Nitrogen 13 mg/dL (7-18); Carbon Dioxide 31 mmol/L (21-32); Chloride 105 mmol/L (98-108); Estimated CRCL calculation 53 ml/min; Estimated Glomerular Filt Rate > 60; Glucose 84 mg/dL (70-99); Osmolality Calculated 295 mOsm/kg (285-295); Sodium 143 mmol/L (136-145); Total Protein 6.9 g/dL (6.4-8.2)
[2021-02-20] MEDS: SODIUM CHLORIDE 0.9% IV 250 ML 10 ML IVPB (07:50)
[2021-02-20] MEDS: FAMOTIDINE 20 MG/ISO 50 ML 20 MG/50 ML BAG 100 MG IVPB (07:50)
[2021-02-20 08:04] LABS: Band Neutrophils Percent 0 % (0-6); Basophils Percent Manual 0 % (0-1); Eosinophils Absolute Manual 0.07 K/mm3 (0.02-0.5); Eosinophils Percent Manual 1 % (1-6); Lymphocytes Absolute Manual 2.02 K/mm3 (1.1-4.5); Lymphocytes Percent Manual 26 % (18-44); Monocytes Absolute Manual 0.62 K/mm3 (0.1-0.90); Monocytes Percent Manual 8 % (3-9); Neutrophils Absolute Manual 5.07 K/mm3 (1.7-7.2); Neutrophils Percent Manual 65 % (46-73); Platelet Estimate Adequate (Adequate); Total Cells Counted 100
[2021-02-20] MEDS: diphenhydrAMINE HCl INJ 50 MG/ML VIAL 25 MG IV PUSH (08:12)
[2021-02-20] MEDS: ACETAMINOPHEN 325 MG TABLET 650 MG BY MOUTH (08:13)
[2021-02-20 09:45] VITALS: BP 130/68; PULSE 68; RESP 14; O2SAT 98
[2021-02-20 10:30] VITALS: BP 123/70; PULSE 68; RESP 14; O2SAT 98
[2021-02-20 13:28] VITALS: BP 140/54; PULSE 75; RESP 14; TEMP 37.2; O2SAT 99
--- NOTE | 2021-02-20 13:46 | PC.NURSE ---
Patient here for #3 of 4 Rituxan/chemo regimen. Labs drawn and reviewed. Ok'd. Reinstructed on medications to be given. No concerns voiced. Chemo regimen administered as ordered. Tolerated well. Safe exit of hospital. Will return for #4 on 02/27.YEIMI
== END 2021-02-20 07:19 | disposition home or self-care (01) ==
PROVIDERS: PCP Family Medicine; Visit Provider Internal Medicine Hematology & Oncology
DX: Z51.11 Encounter for antineoplastic chemotherapy (principal); C88.0 Waldenstrom macroglobulinemia
CPT/HCPCS: 36415; 80053; 85025; 96367; 96375; 96413; 96415; A9270; J1100; J1200; J7030; J7050; J9312

== ENCOUNTER 2021-02-27 07:10 | Outpatient (CLI) | payer MEDICARE, OTHER, SELFPAY ==
[2021-02-27 07:18] VITALS: BMI 30.4
[2021-02-27 07:20] LABS: Basophils Absolute Auto 0.02 K/mm3 (0.00-0.10); Basophils Percent Auto 0.2 % (0.0-1.0); Eosinophils Absolute Auto 0.14 K/mm3 (0.02-0.50); Eosinophils Percent Auto 1.6 % (1.0-6.0); Hematocrit 39.2 % (35.0-42.0); Hemoglobin 12.7 g/dL (11.7-13.8); Immature Granulocyte Absolute 0.06 K/mm3 (0.00-0.00); Immature Granulocyte Percent A 0.7 % (0.0-0.0); Lymphocytes Absolute Auto 2.23 K/mm3 (1.10-4.50); Lymphocytes Percent Auto 26.1 % (18.0-42.0); Mean Corpuscular HGB Conc 32.4 g/dL (32.0-36.0); Mean Corpuscular Hemoglobin 29.5 pg (27.0-31.0); Mean Platelet Volume 12.9 fl (9.2-11.8); Monocytes Absolute Auto 0.87 K/mm3 (0.10-0.90); Monocytes Percent Auto 10.2 % (2.0-11.0); Neutrophils Absolute Auto 5.2 K/mm3 (1.7-7.2); Neutrophils Percent Auto 61.2 % (50.0-70.0); Platelet Count Result 149 K/mm3 (150-420); Red Blood Count 4.31 M/mm3 (4.20-5.40); Red Cell Distribution Width 12.9 % (11.6-14.4); White Blood Count 8.5 K/mm3 (4.8-10.8)
[2021-02-27 07:36] LABS: Alanine Aminotransferase 18 U/L (14-59); Alkaline Phosphatase 41 U/L (46-116); Anion Gap 7 mmol/L (8-16); Aspartate Amino Transferase 13 U/L (15-37); Bilirubin,Total 0.7 mg/dL (0.00-1.00); Blood Urea Nitrogen 15 mg/dL (7-18); Calcium 8.4 mg/dL (8.5-10.1); Carbon Dioxide 30 mmol/L (21-32); Chloride 106 mmol/L (98-108); Estimated CRCL calculation 55 ml/min; Estimated Glomerular Filt Rate > 60; Glucose 84 mg/dL (70-99); Osmolality Calculated 295 mOsm/kg (285-295); Potassium 3.8 mmol/L (3.5-5.1); Sodium 143 mmol/L (136-145); Total Protein 6.5 g/dL (6.4-8.2)
[2021-02-27 07:37] VITALS: BP 135/58; PULSE 70; RESP 14; TEMP 36.7; O2SAT 97
[2021-02-27] MEDS: FAMOTIDINE 20 MG/ISO 50 ML 20 MG/50 ML BAG 100 MG IVPB (07:45)
[2021-02-27] MEDS: SODIUM CHLORIDE 0.9% IV 250 ML 30 ML IVPB (07:57)
[2021-02-27] MEDS: ACETAMINOPHEN 325 MG TABLET 650 MG PO (07:58)
[2021-02-27] MEDS: diphenhydrAMINE HCl INJ 50 MG/ML VIAL 25 MG IV PUSH (08:10)
[2021-02-27 09:10] VITALS: BP 130/59; PULSE 72; RESP 14; O2SAT 97
[2021-02-27 09:40] VITALS: BP 120/49; PULSE 72; RESP 14; O2SAT 97
[2021-02-27 10:20] VITALS: BP 120/49; PULSE 68; RESP 12; O2SAT 98
[2021-02-27 10:40] VITALS: BP 118/48; PULSE 70; RESP 14; O2SAT 97
[2021-02-27 12:32] VITALS: BP 120/58; PULSE 70; RESP 18; TEMP 37; O2SAT 97
--- NOTE | 2021-02-27 12:34 | PC.NURSE ---
Patient here for #4 of 4 Rituxan IV chemotherapy regime. Labs drawn and reviewed and ok'd. Education reinforced on chemo etc. No concerns voiced. Rituxan IV chemotherapy regime administered. Tolerated it well. Has an appointment March 09, [address] Vides and will go from there. Safe exit of hospital.
== END 2021-02-27 07:11 | disposition home or self-care (01) ==
PROVIDERS: PCP Family Medicine; Visit Provider Internal Medicine Hematology & Oncology
DX: Z51.11 Encounter for antineoplastic chemotherapy (principal); C88.0 Waldenstrom macroglobulinemia
CPT/HCPCS: 36415; 80053; 85025; 96367; 96375; 96413; 96415; A9270; J1100; J1200; J7030; J7050; J9312

== ENCOUNTER 2021-03-09 13:40 | Outpatient (CLI) | payer MEDICARE, SELFPAY ==
[2021-03-09 15:02] LABS: Alanine Aminotransferase 19 U/L (14-59); Albumin Level 3.5 g/dL (3.4-5.0); Alkaline Phosphatase 43 U/L (46-116); Anion Gap 12 mmol/L (8-16); Aspartate Amino Transferase 15 U/L (15-37); Bilirubin,Total 1.1 mg/dL (0.00-1.00); Blood Urea Nitrogen 15 mg/dL (7-18); Calcium 8.5 mg/dL (8.5-10.1); Carbon Dioxide 28 mmol/L (21-32); Chloride 106 mmol/L (98-108); Estimated Glomerular Filt Rate > 60; Glucose 77 mg/dL (70-99); Lactate Dehydrogenase 202 U/L (81-234); Osmolality Calculated 301 mOsm/kg (285-295); Sodium 146 mmol/L (136-145); Total Protein 6.7 g/dL (6.4-8.2)
[2021-03-11 22:40] LABS: Kappa\\Lambda Light Chains 33.03 (0.26-1.65); Lambda Light Chain 9.8 mg/L (5.7-26.3)
[2021-03-12 22:26] LABS: Abnormal Protein Band 1 0.8 g/dL; Albumin 3.9 g/dL (3.8-4.8); Alpha 1 Globulin 0.3 g/dL (0.2-0.3); Alpha 2 Globulin 0.7 g/dL (0.5-0.9); Beta 1 Globulin 0.4 g/dL (0.4-0.6); Gamma Globulin 1.2 g/dL (0.8-1.7); Protein, Total 6.7 g/dL (6.1-8.1)
[2021-03-13 10:40] LABS: Immunoglobulin A 51 mg/dL (70-320); Immunoglobulin G 355 mg/dL (600-1540); Immunoglobulin M 1413 mg/dL (50-300)
[2021-03-13 23:53] LABS: Viscosity 2.2 rel to H2O (1.5-1.9)
== END 2021-03-09 13:41 | disposition home or self-care (01) ==
LOC: CHSLAB 13:43
PROVIDERS: PCP Family Medicine; Visit Provider Internal Medicine Hematology & Oncology
DX: C85.90 Non-Hodgkin lymphoma, unspecified, unspecified site (principal)
CPT/HCPCS: 36415; 80053; 82784; 83615; 83883; 84155; 84165; 85810

== ENCOUNTER 2021-05-29 07:36 | Outpatient (CLI) | payer MEDICARE, OTHER, SELFPAY ==
[2021-05-29 07:42] VITALS: BMI 31.4
[2021-05-29] MEDS: SODIUM CHLORIDE 0.9% IV 250 ML 10 ML IVPB (07:50)
[2021-05-29 07:55] LABS: Hematocrit 41.4 % (35.0-42.0); Mean Corpuscular HGB Conc 31.4 g/dL (32.0-36.0); Mean Corpuscular Hemoglobin 28.5 pg (27.0-31.0); Mean Corpuscular Volume 90.8 fL (78.0-102.0); Mean Platelet Volume 12.7 fl (9.2-11.8); Platelet Count Result 209 K/mm3 (150-420); Red Blood Count 4.56 M/mm3 (4.20-5.40); Red Cell Distribution Width 13.6 % (11.6-14.4); White Blood Count 8.7 K/mm3 (4.8-10.8)
[2021-05-29] MEDS: ACETAMINOPHEN 325 MG TABLET 650 MG PO (08:00)
[2021-05-29] MEDS: diphenhydrAMINE HCl INJ 50 MG/ML VIAL 25 MG IV PUSH (08:00)
[2021-05-29] MEDS: FAMOTIDINE 20 MG/ISO 50 ML 20 MG/50 ML BAG 100 MG IVPB (08:02)
[2021-05-29 08:07] LABS: Alanine Aminotransferase 21 U/L (14-59); Albumin Level 3.3 g/dL (3.4-5.0); Alkaline Phosphatase 58 U/L (46-116); Anion Gap 7 mmol/L (8-16); Aspartate Amino Transferase 18 U/L (15-37); Bilirubin,Total 1.3 mg/dL (0.00-1.00); Blood Urea Nitrogen 14 mg/dL (7-18); Carbon Dioxide 31 mmol/L (21-32); Chloride 106 mmol/L (98-108); Estimated CRCL calculation 51 ml/min; Estimated Glomerular Filt Rate > 60; Glucose 84 mg/dL (70-99); Osmolality Calculated 297 mOsm/kg (285-295); Potassium 4.3 mmol/L (3.5-5.1); Sodium 144 mmol/L (136-145); Total Protein 7.1 g/dL (6.4-8.2); Uric Acid 5.5 mg/dL (2.6-6.0)
[2021-05-29 08:20] LABS: Band Neutrophils Percent 0 % (0-6); Neutrophils Absolute Manual 6.17 K/mm3 (1.7-7.2); Neutrophils Percent Manual 71 % (46-73); Total Cells Counted 100
[2021-05-29 08:21] LABS: Basophils Absolute Manual 0.17 K/mm3 (0-0.1); Basophils Percent Manual 2 % (0-1); Eosinophils Absolute Manual 0.17 K/mm3 (0.02-0.5); Eosinophils Percent Manual 2 % (1-6); Lymphocytes Absolute Manual 1.65 K/mm3 (1.1-4.5); Lymphocytes Percent Manual 19 % (18-44); Monocytes Absolute Manual 0.52 K/mm3 (0.1-0.90); Monocytes Percent Manual 6 % (3-9); Platelet Estimate Adequate (Adequate)
[2021-05-29 08:22] VITALS: BP 122/73; PULSE 74; RESP 16; TEMP 36.3; O2SAT 97
[2021-05-29 09:20] VITALS: BP 139/60; PULSE 67; RESP 14; O2SAT 97
[2021-05-29 09:50] VITALS: BP 120/60; PULSE 80; RESP 14; O2SAT 97
[2021-05-29 10:20] VITALS: BP 119/60; PULSE 78; RESP 14; O2SAT 98
[2021-05-29 12:19] VITALS: BP 130/60; PULSE 78; RESP 14; TEMP 36.4; O2SAT 98
--- NOTE | 2021-05-29 12:41 | PC.NURSE ---
Patient here for day 1 chemo IV Rituxan chemo regimen. Patient last chemo was in January 2021. Same regimen as this. Education update given. is here with patient-support person. IV regimen administered SEE OCT. Safe exit of hospital. Will return Jun 05, 2021 for day 8 of chemo regimen.
== END 2021-05-29 07:37 | disposition home or self-care (01) ==
LOC: CHSTREATRM 07:39
PROVIDERS: PCP Family Medicine; Visit Provider Internal Medicine Hematology & Oncology
DX: Z51.11 Encounter for antineoplastic chemotherapy (principal); C88.0 Waldenstrom macroglobulinemia
CPT/HCPCS: 36415; 80053; 84550; 85025; 96367; 96375; 96413; 96415; A9270; J1100; J1200; J7030; J7050; J9312

== ENCOUNTER 2021-06-05 07:07 | Outpatient (CLI) | payer MEDICARE, OTHER, SELFPAY ==
[2021-06-05 07:22] LABS: Hematocrit 41.4 % (35.0-42.0); Hemoglobin 12.8 g/dL (11.7-13.8); Immature Platelet Fraction Pct 13.5 % (1.0-7.0); Mean Corpuscular HGB Conc 30.9 g/dL (32.0-36.0); Mean Corpuscular Hemoglobin 28.2 pg (27.0-31.0); Mean Corpuscular Volume 91.2 fL (78.0-102.0); Mean Platelet Volume 13.1 fl (9.2-11.8); Platelet Count Result 189 K/mm3 (150-420); Red Blood Count 4.54 M/mm3 (4.20-5.40); Red Cell Distribution Width 13.9 % (11.6-14.4); White Blood Count 9.6 K/mm3 (4.8-10.8)
[2021-06-05] MEDS: diphenhydrAMINE HCl INJ 50 MG/ML VIAL 25 MG IV PUSH (07:25)
[2021-06-05] MEDS: ACETAMINOPHEN 325 MG TABLET 650 MG PO (07:25)
[2021-06-05] MEDS: SODIUM CHLORIDE 0.9% IV 250 ML 10 ML IVPB (07:30)
[2021-06-05] MEDS: FAMOTIDINE 20 MG/ISO 50 ML 20 MG/50 ML BAG 100 MG IVPB (07:30)
[2021-06-05 07:36] LABS: Alanine Aminotransferase 21 U/L (14-59); Albumin Level 3.2 g/dL (3.4-5.0); Alkaline Phosphatase 56 U/L (46-116); Anion Gap 9 mmol/L (8-16); Aspartate Amino Transferase 14 U/L (15-37); Bilirubin,Total 0.9 mg/dL (0.00-1.00); Blood Urea Nitrogen 11 mg/dL (7-18); Calcium 8.5 mg/dL (8.5-10.1); Carbon Dioxide 31 mmol/L (21-32); Chloride 107 mmol/L (98-108); Estimated Glomerular Filt Rate > 60; Glucose 81 mg/dL (70-99); Osmolality Calculated 302 mOsm/kg (285-295); Potassium 4.1 mmol/L (3.5-5.1); Sodium 147 mmol/L (136-145); Total Protein 6.8 g/dL (6.4-8.2)
[2021-06-05 07:41] VITALS: BP 130/71; PULSE 78; RESP 14; TEMP 36.2; O2SAT 98; BMI 31.6
[2021-06-05 07:44] LABS: Band Neutrophils Percent 0 % (0-6); Basophils Absolute Manual 0.19 K/mm3 (0-0.1); Basophils Percent Manual 2 % (0-1); Eosinophils Absolute Manual 0.28 K/mm3 (0.02-0.5); Eosinophils Percent Manual 3 % (1-6); Lymphocytes Percent Manual 23 % (18-44); Monocytes Absolute Manual 0.86 K/mm3 (0.1-0.90); Monocytes Percent Manual 9 % (3-9); Myelocytes Percent 1 %; Neutrophils Absolute Manual 5.95 K/mm3 (1.7-7.2); Neutrophils Percent Manual 62 % (46-73); Platelet Estimate Adequate (Adequate); Total Cells Counted 100
[2021-06-05 09:10] VITALS: BP 130/67; PULSE 72; RESP 14; O2SAT 98
[2021-06-05 09:40] VITALS: BP 136/67; PULSE 74; RESP 14; O2SAT 97
[2021-06-05 10:10] VITALS: BP 133/65; PULSE 74; RESP 14; O2SAT 98
[2021-06-05 12:21] VITALS: BP 121/64; PULSE 74; RESP 14; TEMP 36.6; O2SAT 97
--- NOTE | 2021-06-05 12:25 | PC.NURSE ---
Patient here for day 15 of Rituxan IV Chemo regimen. No concerns voiced. Labs reviewed and ok'd. Chemo regimen administered SEE OCT. Tolerated well. Will return for day next Friday06/12/21 at 0730. Safe exit of hospital. YEIMI
== END 2021-06-05 07:08 | disposition home or self-care (01) ==
LOC: CHSTREATRM 07:11
PROVIDERS: PCP Family Medicine; Visit Provider Internal Medicine Hematology & Oncology
DX: Z51.11 Encounter for antineoplastic chemotherapy (principal); C88.0 Waldenstrom macroglobulinemia
CPT/HCPCS: 36415; 80053; 85025; 85055; 96367; 96375; 96413; 96415; A9270; J1100; J1200; J7030; J7050; J9312

== ENCOUNTER 2021-06-12 07:08 | Outpatient (CLI) | payer MEDICARE, OTHER, SELFPAY ==
[2021-06-12 07:22] LABS: Hematocrit 40.5 % (35.0-42.0); Hemoglobin 12.9 g/dL (11.7-13.8); Mean Corpuscular HGB Conc 31.9 g/dL (32.0-36.0); Mean Corpuscular Hemoglobin 28.9 pg (27.0-31.0); Mean Corpuscular Volume 90.8 fL (78.0-102.0); Mean Platelet Volume 13.3 fl (9.2-11.8); Platelet Count Result 175 K/mm3 (150-420); Red Blood Count 4.46 M/mm3 (4.20-5.40); Red Cell Distribution Width 14.2 % (11.6-14.4); White Blood Count 11.9 K/mm3 (4.8-10.8)
[2021-06-12] MEDS: SODIUM CHLORIDE 0.9% IV 250 ML 10 ML IVPB (07:25)
[2021-06-12] MEDS: diphenhydrAMINE HCl INJ 50 MG/ML VIAL 25 MG IV PUSH (07:25)
[2021-06-12] MEDS: ACETAMINOPHEN 325 MG TABLET 650 MG PO (07:26)
[2021-06-12] MEDS: FAMOTIDINE 20 MG/ISO 50 ML 20 MG/50 ML BAG 100 MG IVPB (07:30)
[2021-06-12 07:34] VITALS: BP 127/68; PULSE 72; RESP 14; TEMP 36.5; O2SAT 98
[2021-06-12 07:35] LABS: Alanine Aminotransferase 19 U/L (14-59); Albumin Level 3.1 g/dL (3.4-5.0); Alkaline Phosphatase 57 U/L (46-116); Anion Gap 10 mmol/L (8-16); Aspartate Amino Transferase 15 U/L (15-37); Bilirubin,Total 0.7 mg/dL (0.00-1.00); Blood Urea Nitrogen 14 mg/dL (7-18); Calcium 8.9 mg/dL (8.5-10.1); Carbon Dioxide 27 mmol/L (21-32); Chloride 105 mmol/L (98-108); Estimated Glomerular Filt Rate > 60; Glucose 78 mg/dL (70-99); Osmolality Calculated 293 mOsm/kg (285-295); Potassium 3.9 mmol/L (3.5-5.1); Sodium 142 mmol/L (136-145); Total Protein 6.8 g/dL (6.4-8.2)
[2021-06-12 07:36] VITALS: BMI 31.6
[2021-06-12 07:44] LABS: Band Neutrophils Percent 0 % (0-6); Eosinophils Absolute Manual 0.11 K/mm3 (0.02-0.5); Eosinophils Percent Manual 1 % (1-6); Lymphocytes Absolute Manual 2.38 K/mm3 (1.1-4.5); Lymphocytes Percent Manual 20 % (18-44); Monocytes Absolute Manual 0.95 K/mm3 (0.1-0.90); Monocytes Percent Manual 8 % (3-9); Neutrophils Absolute Manual 8.44 K/mm3 (1.7-7.2); Neutrophils Percent Manual 71 % (46-73); Platelet Estimate Adequate (Adequate); Total Cells Counted 100
[2021-06-12] MEDS: DEXAMETHASONE SOD PHOS INJ 4 MG/ML VIAL 12 MG IV PUSH (07:59)
[2021-06-12 08:55] VITALS: BP 122/60; PULSE 72; RESP 14; O2SAT 97
[2021-06-12 09:25] VITALS: BP 123/64; PULSE 72; RESP 14; O2SAT 98
[2021-06-12 10:10] VITALS: BP 123/69; PULSE 78; RESP 14; O2SAT 97
[2021-06-12 12:24] VITALS: BP 130/70; PULSE 72; RESP 14; O2SAT 100
--- NOTE | 2021-06-12 12:26 | PC.NURSE ---
Patient here for #3 of 4 IV Rituxan chemo regimen. Labs drawn and reviewed and ok'd. No concerns voiced. Education given on medication. Rituxan chemo regimen administered as ordered. SEE MAR. Tolerated well. Will return next 06/19/21 for #4. Safe exit of hospital.
== END 2021-06-12 07:09 | disposition home or self-care (01) ==
PROVIDERS: PCP Family Medicine; Visit Provider Internal Medicine Hematology & Oncology
DX: Z51.11 Encounter for antineoplastic chemotherapy (principal); C88.0 Waldenstrom macroglobulinemia
CPT/HCPCS: 36415; 80053; 85025; 96367; 96375; 96413; 96415; A9270; J1100; J1200; J7030; J7050; J9312

== ENCOUNTER 2021-06-18 07:20 | Outpatient (CLI) | payer MEDICARE, OTHER, SELFPAY ==
[2021-06-18 07:32] LABS: Basophils Absolute Auto 0.04 K/mm3 (0.00-0.10); Basophils Percent Auto 0.4 % (0.0-1.0); Eosinophils Absolute Auto 0.13 K/mm3 (0.02-0.50); Eosinophils Percent Auto 1.3 % (1.0-6.0); Hematocrit 41.7 % (35.0-42.0); Hemoglobin 13.1 g/dL (11.7-13.8); Immature Granulocyte Absolute 0.06 K/mm3 (0.00-0.00); Immature Granulocyte Percent A 0.6 % (0.0-0.0); Lymphocytes Absolute Auto 1.64 K/mm3 (1.10-4.50); Lymphocytes Percent Auto 16.8 % (18.0-42.0); Mean Corpuscular HGB Conc 31.4 g/dL (32.0-36.0); Mean Corpuscular Hemoglobin 28.4 pg (27.0-31.0); Mean Corpuscular Volume 90.3 fL (78.0-102.0); Mean Platelet Volume 12.9 fl (9.2-11.8); Monocytes Absolute Auto 0.75 K/mm3 (0.10-0.90); Monocytes Percent Auto 7.7 % (2.0-11.0); Neutrophils Absolute Auto 7.1 K/mm3 (1.7-7.2); Neutrophils Percent Auto 73.2 % (50.0-70.0); Platelet Count Result 173 K/mm3 (150-420); Red Blood Count 4.62 M/mm3 (4.20-5.40); White Blood Count 9.7 K/mm3 (4.8-10.8)
[2021-06-18 07:46] VITALS: BP 126/69; PULSE 72; RESP 14; TEMP 36.5; O2SAT 98
[2021-06-18 07:48] VITALS: BMI 31.5
[2021-06-18] MEDS: ACETAMINOPHEN 325 MG TABLET 650 MG PO (07:50)
[2021-06-18] MEDS: DEXAMETHASONE SOD PHOS INJ 4 MG/ML VIAL 12 MG IV PUSH (07:52)
[2021-06-18 07:53] LABS: Alanine Aminotransferase 20 U/L (14-59); Albumin Level 3.1 g/dL (3.4-5.0); Alkaline Phosphatase 54 U/L (46-116); Anion Gap 9 mmol/L (8-16); Aspartate Amino Transferase 14 U/L (15-37); Bilirubin,Total 1.1 mg/dL (0.00-1.00); Blood Urea Nitrogen 12 mg/dL (7-18); Calcium 8.8 mg/dL (8.5-10.1); Carbon Dioxide 31 mmol/L (21-32); Chloride 104 mmol/L (98-108); Estimated CRCL calculation 54 ml/min; Estimated Glomerular Filt Rate > 60; Glucose 85 mg/dL (70-99); Osmolality Calculated 296 mOsm/kg (285-295); Potassium 3.9 mmol/L (3.5-5.1); Sodium 144 mmol/L (136-145); Total Protein 6.9 g/dL (6.4-8.2); Uric Acid 5.2 mg/dL (2.6-6.0)
[2021-06-18] MEDS: diphenhydrAMINE HCl INJ 50 MG/ML VIAL 25 MG IV PUSH (07:55)
[2021-06-18] MEDS: FAMOTIDINE 20 MG/ISO 50 ML 20 MG/50 ML BAG 100 MG IVPB (07:58)
[2021-06-18] MEDS: SODIUM CHLORIDE 0.9% IV 250 ML 10 ML IVPB (07:59)
[2021-06-18 09:00] VITALS: BP 127/68; PULSE 78; RESP 14; O2SAT 98
[2021-06-18 09:30] VITALS: BP 123/64; PULSE 74; RESP 14; O2SAT 98
[2021-06-18 10:00] VITALS: BP 127/68; PULSE 78; RESP 14; O2SAT 98
[2021-06-18 10:30] VITALS: BP 125/68; PULSE 78; RESP 14; O2SAT 98
--- NOTE | 2021-06-18 12:02 | PC.NURSE ---
Patient here for day 22 of cycle 5 Rituxan chemo. No concerns voiced. Only complaint is feeling tired . Labs drawn/reviewed/ok'd. Rituxan chemo regimen for day 22 administered. SEE MAR. Tolerated well. Safe exit of hospital. May be back in 4 months for maintenance. Will be seeing Dr. Vides in next few months.
[2021-06-18 12:07] VITALS: BP 119/67; PULSE 78; RESP 14; O2SAT 98
== END 2021-06-18 07:21 | disposition home or self-care (01) ==
LOC: CHSTREATRM 07:23
PROVIDERS: PCP Family Medicine; Visit Provider Internal Medicine Hematology & Oncology
DX: Z51.11 Encounter for antineoplastic chemotherapy (principal); C88.0 Waldenstrom macroglobulinemia
CPT/HCPCS: 36415; 80053; 84550; 85025; 96367; 96375; 96413; 96415; A9270; J1100; J1200; J7030; J7050; J9312

== ENCOUNTER 2023-12-31 11:36 | Outpatient (CLI) | payer MEDICARE, OTHER, SELFPAY ==
[2023-12-31 12:25] LABS: Alanine Aminotransferase 42 U/L (14-59); Albumin Level 3.5 g/dL (3.4-5.0); Alkaline Phosphatase 77 U/L (46-116); Anion Gap 10 mmol/L (4-12); Aspartate Amino Transferase 33 U/L (15-37); Bilirubin Direct 0.2 mg/dL (0-0.2); Bilirubin,Total 1.1 mg/dL (0.00-1.00); Blood Urea Nitrogen 14 mg/dL (7-18); Carbon Dioxide 29 mmol/L (21-32); Chloride 107 mmol/L (98-108); Estimated Glomerular Filt Rate > 60; Glucose 85 mg/dL (70-99); Osmolality Calculated 301 mOsm/kg (285-295); Potassium 4.1 mmol/L (3.5-5.1); Sodium 146 mmol/L (136-145); Total Protein 6.4 g/dL (6.4-8.2)
[2024-01-02 11:58] LABS: Kappa\\Lambda Light Chains 16.29 (0.26-1.65); Lambda Light Chain 10.4 mg/L (5.7-26.3)
[2024-01-06 11:19] LABS: Immunoglobulin A 60 mg/dL (70-320); Immunoglobulin G 366 mg/dL (600-1540); Immunoglobulin M 889 mg/dL (50-300)
[2024-01-08 03:58] LABS: Viscosity 1.7 (1.5-1.9)
== END 2023-12-31 11:37 | disposition home or self-care (01) ==
PROVIDERS: PCP Family Medicine; Visit Provider Internal Medicine Hematology
DX: C83.00 Small cell B-cell lymphoma, unspecified site (principal)
CPT/HCPCS: 36415; 80053; 82248; 82784; 83883; 85810